=== PATIENT | female | born 1990 | race Caucasian/White ===

== ENCOUNTER 2017-02-17 23:23 | Emergency (ER) | payer MEDICAID ==
[~2017-02-17] VITALS: Ht 165.1 cm; Wt 57.2 kg
[2017-02-17 23:24] VITALS: BP 107/72
== END 2017-02-17 23:57 | disposition home or self-care (01) ==
LOC: ED 23:51
DX: K08.89 Other specified disorders of teeth and supporting structures (principal)
CPT/HCPCS: 99283

== ENCOUNTER 2017-07-02 11:11 | Emergency (ER) | payer MEDICAID, OTHER ==
[~2017-07-02] VITALS: Ht 165.1 cm; Wt 57.3 kg
[2017-07-02 11:13] VITALS: BP 101/67
== END 2017-07-02 11:48 | disposition home or self-care (01) ==
LOC: ED 11:42
DX: K08.89 Other specified disorders of teeth and supporting structures (principal)
CPT/HCPCS: 99283

== ENCOUNTER 2018-02-09 17:56 | Emergency (ER) | payer MEDICAID, OTHER ==
[~2018-02-09] VITALS: Ht 165.1 cm; Wt 61.0 kg
[2018-02-09] MEDS ORDERED: IBUPROFEN 200 MG TABLET PO ONE (18:30)
[2018-02-09 18:42] LABS: MICROSCOPIC AUTO
[2018-02-09 18:43] LABS: CULTURE INDICATED? YES
[2018-02-09 18:52] LABS: BASOPHILS # (AUTO) 0.08 x10^3/uL (0-0.1); BASOPHILS % (AUTO) 1 % (0-1); EOSINOPHILS # (AUTO) 0.03 x10^3/uL (0-0.4); EOSINOPHILS % (AUTO) 0 % (1-7); LYMPHOCYTES # (AUTO) 2.77 x10^3/uL (1-3.4); LYMPHOCYTES % (AUTO) 19 % (22-44); MD NO; MEAN CORPUSCULAR HGB CONC 33.3 g/dL (32.4-35.8); MEAN PLATELET VOLUME 8.2 fL (7.4-10.4); MONOCYTES # (AUTO) 0.78 x10^3/uL (0.2-0.8); MONOCYTES % (AUTO) 5 % (2-9); NEUTROPHILS # (AUTO) 10.77 x10^3/uL (1.8-6.8); NEUTROPHILS % (AUTO) 75 % (42-75); PLATELET COUNT 262 x10^3/uL (130-400); RED BLOOD COUNT 4.12 x10^6/uL (3.82-5.3); RED CELL DISTRIBUTION WIDTH 12.9 % (9.6-15.2)
[2018-02-09 19:00] VITALS: BP 116/76
[2018-02-09 19:04] LABS: ALBUMIN 3.4 g/dL (3.4-5.0); ANION GAP 7 mmol/L (5-15); CALCIUM 8.7 mg/dL (8.5-10.1); CHLORIDE 106 mmol/L (98-107); CREATININE 0.71 mg/dL (0.55-1.02)
== END 2018-02-09 20:18 | disposition home or self-care (01) ==
LOC: ED 20:01
DX: O26.891 Other specified pregnancy related conditions, first trimester (principal); K08.89 Other specified disorders of teeth and supporting structures; H92.02 Otalgia, left ear; Z3A.08 8 weeks gestation of pregnancy
CPT/HCPCS: 36415; 76830; 80048; 81001; 82040; 84702; 85025; 87086; 99285

== ENCOUNTER 2019-02-11 09:21 | Emergency (ER) | payer MEDICAID ==
[~2019-02-11] VITALS: Ht 165.1 cm; Wt 60.9 kg
[2019-02-11 09:26] VITALS: BP 117/82
--- NOTE | 2019-02-11 09:33 | NUR ---
PT STATES SHE HAS L FACIAL PAIN, STARTING AT L SIDE OF HER NOSE AND UP TO HER EYE. PT STATES SHE HAD A FACIAL FX LAST YEAR AND FRACTURED HER ORBITAL WALL. PT STATES THE PAIN BEGAN 2 DAYS AGO. PT TOOK IBU LAST NIGHT FOR THE PAIN. PT STATES PAIN IS 8/10. PT DENIES TRAUMA.
[2019-02-11] MEDS ORDERED: KETOROLAC 30 MG/1 ML IM ONE (10:00)
[2019-02-11] MEDS ORDERED: KETOROLAC 30 MG/1 ML ONE (10:00)
== END 2019-02-11 10:23 | disposition home or self-care (01) ==
LOC: ED 09:54
DX: R51 Headache (principal)
CPT/HCPCS: 96372; 99283; J1885

== ENCOUNTER 2019-10-22 14:28 | Emergency (ER) | payer MEDICAID ==
[~2019-10-22] VITALS: Ht 165.1 cm; Wt 58.0 kg
[2019-10-22 14:35] VITALS: BP 110/78
== END 2019-10-22 15:20 | disposition left against medical advice (07) ==
LOC: ED 14:59
DX: J00 Acute nasopharyngitis [common cold] (principal)
CPT/HCPCS: 93005; 99283

== ENCOUNTER 2020-08-11 21:40 | Emergency (ER) | payer MEDICAID ==
[~2020-08-11] VITALS: Ht 165.1 cm; Wt 63.0 kg
[2020-08-11] MEDS ORDERED: IBUPROFEN 600 MG TABLET ONE (21:58)
[2020-08-11] MEDS ORDERED: ACETAMINOPHEN 325 MG TABLET ONE (21:58)
[2020-08-11] MEDS ORDERED: ACETAMINOPHEN 325 MG TABLET PO ONE (22:00)
[2020-08-11] MEDS ORDERED: IBUPROFEN 600 MG TABLET PO ONE (22:00)
--- NOTE | 2020-08-11 22:01 | NUR ---
Pt comes in with dental pain on the top left. Patient states she is unable to afford a dentist right now and pretty much came in just for a antiboitc. Provider at bedside
[2020-08-11 22:38] VITALS: BP 117/71
== END 2020-08-11 22:40 | disposition home or self-care (01) ==
LOC: ED 22:34
DX: K02.9 Dental caries, unspecified (principal)
CPT/HCPCS: 99283